=== PATIENT | male | born 1970 | race Caucasian/White ===

== ENCOUNTER 2022-02-02 09:12 | Outpatient (CLI) | payer BC, OTHER ==
[2022-02-02] MEDS ORDERED: Magnevist 469MG/ML 20 ML VIAL ONE (14:05)
== END 2022-02-02 09:13 | disposition home or self-care (01) ==
LOC: CSHMRI 09:12
PROVIDERS: ATTEND Neurological Surgery
DX: C71.9 Malignant neoplasm of brain, unspecified (principal)
CPT/HCPCS: 70553; A9579